=== PATIENT | female | born 1930 | race Hispanic/Latino ===

== ENCOUNTER 2018-02-20 12:46 | Inpatient (IN) | payer OTHER ==
[~2018-02-20] VITALS: Ht 149.9 cm; Wt 44.9 kg
[2018-02-20] MEDS ORDERED: LOSARTAN POTASS25 MG PO (13:30)
[2018-02-20] MEDS ORDERED: AMLODIPINE BESY10 MG PO (13:30)
[2018-02-20] MEDS ORDERED: ATORVASTATIN CA10 MG PO (13:30)
[2018-02-20] MEDS ORDERED: PANTOPRAZOLE SO40 MG PO (13:30)
[2018-02-20] MEDS ORDERED: ELIQUIS PO (13:30)
[2018-02-20] MEDS ORDERED: HYDRALAZINE HCL10 MG PO (13:30)
[2018-02-20] MEDS ORDERED: METOPROLOL SUCC25 MG PO (13:30)
[2018-02-20 14:16] LABS: BILIRUBIN,URINE NEGATIVE (NEGATIVE); CLARITY,URINE CLEAR (CLEAR); COLOR,URINE YELLOW (YELLOW); KETONES,URINE NEGATIVE (NEGATIVE); LEUKOCYTE ESTERASE ,URINE NEGATIVE (NEGATIVE); NITRITE,URINE NEGATIVE (NEGATIVE); PROTEIN,URINE DIPSTICK NEGATIVE (NEGATIVE); URINE UROBILINOGEN 0.2 mg/dL (0.2 - 1)
[2018-02-20] MEDS ORDERED: ASPIRIN 325 MG TAB PO STA (14:18)
[2018-02-20 14:28] LABS: BACTERIA,URINE MODERATE /HPF; EPITHELIAL CELLS,URINE FEW /LPF; RBC,URINE 0-5 /HPF (0-5); RENAL EPITHELIAL CELLS,URINE RARE
[2018-02-20] MEDS ORDERED: HEPARIN 25,000U/0.45% NS 250ML 800 UNIT in SODIUM CHLORIDE 0.9% 250ML 0 ML IV SCH (15:00)
[2018-02-20] MEDS ORDERED: HEPARIN SOD (PORCINE) 5,000 UNIT/ML VIAL IV ONE (15:00)
[2018-02-20 15:11] LABS: BASOPHILS % 0.6 % (0.0-1.0); EOSINOPHILS % 0.1 % (0.0-6.0); HEMATOCRIT 29.1 % (34.2-44.1); HEMOGLOBIN 9.4 g/dL (12.0-16.0); LYMPHOCYTES # (AUTO) 1.7 (1.0-3.2); MEAN CORPUSCULAR HEMOGLOBIN 22.3 pg (28-32); MEAN CORPUSCULAR HGB CONC 32.3 g/dL (31-35); MONOCYTES # (AUTO) 0.6 (0.2-0.8); MONOCYTES % 9.4 % (4.4-11.3); NEUTROPHILS # (AUTO) 4.4 (2.1-6.9); NEUTROPHILS % 64.5 % (38.7-80.0); PLATELET COUNT 203 x10e3/uL (140-360); RED BLOOD COUNT 4.22 x10e6/uL (3.6-5.1); RED CELL DISTRIBUTION WIDTH 15.9 % (11.7-14.4)
--- NOTE | 2018-02-20 15:13 | Diagnostic Imaging Report ---
PROCEDURE: A single AP view of the chest. COMPARISON: None. INDICATIONS: LEG CRAMPS, PAIN FINDINGS: Lines/tubes: Overlying right atrium and right ventricle. Lungs: Limited by slight rotation. The lungs are well inflated. Pulmonary vascular congestion and possible mild interstitial edema. Pleura: There is no visible pneumothorax. Possible trace left pleural effusion. Heart and mediastinum: Enlarged cardiac silhouette. Aorta is calcified and mildly tortuous. Bones: No acute bony abnormality. Right humeral head anchor screws. IMPRESSION: Enlarged cardiac silhouette, pulmonary vascular congestion, and possible mild interstitial edema. Suspected trace left pleural effusion versus scarring/atelectasis. Dictated by: Fam Winchester M.D. on 02/20/2018 at 15:17 Electronically approved by: Fam Wicnhester M.D. on 02/20/2018 at 15:17
[2018-02-20 15:22] LABS: INR 1.31; PROTHROMBIN TIME 15.3 seconds (11.9-14.5)
[2018-02-20 15:23] LABS: PARTIAL THROMBOPLASTIN TIME 48.7 seconds (23.8-35.5)
[2018-02-20 15:29] LABS: ALBUMIN 4.3 g/dL (3.5-5.0); ALBUMIN/GLOBULIN RATIO 1.1 (0.8-2.0); ANION GAP 17.2 mmol/L (8-16); CALCIUM 10.5 mg/dL (8.4-10.2); CREATININE, SERUM 1.43 mg/dL (0.57-1.11); POTASSIUM 3.2 mmol/L (3.5-5.1)
[2018-02-20] MEDS ORDERED: SODIUM CHLORIDE 0.9% 250ML 250 ML ONE (15:50)
[2018-02-20] MEDS ORDERED: ASPIRIN 325 MG TAB PO ONE (18:15)
[2018-02-20] MEDS ORDERED: ONDANSETRON HCL INJ 2 MG/ML VIAL IV PRN (18:15)
[2018-02-20] MEDS ORDERED: MORPHINE SULFATE 2 MG/ML SYR IV PRN (18:15)
[2018-02-20 20:00] VITALS: BP 129/60
[2018-02-20 20:51] VITALS: BP 129/60
[2018-02-20] MEDS: ATORVASTATIN 10 MG TAB PO SCH (21:00)
--- NOTE | 2018-02-20 21:45 | Consultation ---
DATE OF CONSULTATION: February 20, 2018 CARDIOLOGY CONSULTATION CHIEF COMPLAINT: Worsening left leg discomfort. HISTORY OF PRESENT ILLNESS: Ms. Govea is a pleasant 86-year-old woman with a history of hypertension; COPD; AV block Mobitz type 2, status post permanent pacemaker placement, Karla XT DR MRI [id number] [employer] device placed by Dr. Prieto; history of atrial tachycardia and atrial fibrillation and sinus node dysfunction, who presents to [facility] for complaints of worsening leg discomfort with now pain at rest with, per family, concerns of progression of arterial disease. She has been recently evaluated at other institution and brings some reports including an arterial Doppler ultrasound, date of service February 08, 2018, which is significant for severely abnormal ABIs to the left lower extremity and moderately abnormal ABIs to right lower extremity also with Doppler ultrasound findings concerning for multilevel peripheral arterial disease. Mainly monophasic waveforms noted to the right femoral to posterior tibial artery and elevated velocities in the mid segment of the femoral artery and distal segment of the popliteal artery to the right with absent Doppler signals in the posterior tibial arteries suggestive of occlusion. To the left lower extremity, monophasic waveform was noted from the common femoral artery down to the anterior tibial artery with elevated velocities in the common femoral, profunda and superficial femoral arteries and retrograde flow in the mid segment of the femoral artery and popliteal artery on the left with absent flow color signal in the distal segmental femoral artery and the posterior tibial artery suggestive of occlusion. Other abnormal findings include creatinine of 1.8 with an estimated GFR of 28 based on outpatient studies from February 10, 2018. Hemoglobin of 10, white blood cell count of 7.9 and platelets of 206,000. Her EKG shows paced rhythm. Her recent pacemaker interrogation revealed appropriate device function and was done on December 01, 2017. She is in chronic atrial fibrillation 100% of the time. She has been adhering to Eliquis therapy as an outpatient. She also notes dyspnea on exertion. REVIEW OF SYSTEMS: A 12-system review negative except for as noted above. ALLERGIES: TO SULFA. PAST MEDICAL HISTORY: As per HPI. SOCIAL HISTORY: Former smoking. No alcohol or drugs. FAMILY HISTORY: Good family support. Significant for high blood pressure. PHYSICAL EXAMINATION VITALS: Temperature 98.1, heart rate 59, respiratory rate 20, blood pressure 114/44, and O2 sat 92% on nasal cannula. GENERAL: No acute distress. Alert. NECK: No JVD. Left carotid bruit. CHEST: Clear to auscultation. CARDIOVASCULAR: Regular rate and rhythm. Normal S1 and S2. Systolic ejection murmur /6. No S3, no S4. ABDOMEN: Soft. EXTREMITIES: No edema. No evidence of ulceration or gangrenous changes. Has had normal pulses to bilateral lower extremities. MEDICATIONS: Has been initiated on IV heparin. Eliquis on hold. Aspirin 325 mg given times 1. Home medications will be reconciled including statin and blood pressure medications. LABS: White blood cells 6.8, hemoglobin 9.4, platelets 203,000, INR 1.3, PT 15, PTT 48. Sodium 133, potassium 3.2, chloride 95, bicarbonate 24, BUN 23, creatinine 1.45 with an estimated GFR of 35. Calcium 10.5, AST 23, ALT 13, total bilirubin 1, alk phos 75, total protein 8.1, albumin 4.3. Chest x-ray: Enlarged cardiac silhouette, pulmonary vascular congestion, possible mild interstitial edema, suspected trace left pleural effusion. ASSESSMENT: An 88-year-old woman presenting with 1. Severe left limiting claudication with symptoms occurring at rest to left lower extremity with no ulcer or gangrene at this point. 2. Chronic kidney disease stage 3. 3. Left carotid bruit. 4. Dyspnea on exertion and cardiomegaly on x-ray concerning for heart failure. 5. Hypertension. 6. Chronic atrial fibrillation. 7. Sick sinus syndrome, status post Medtronic pacemaker placement. RECOMMENDATIONS: 1. Hold Eliquis. 2. Add aspirin and statin. 3. Resume beta pia and other home cardiovascular medications other than Eliquis. 4. Obtain echocardiogram. 5. Obtain carotid ultrasound. 6. Depending on echocardiogram results, consider candidacy for cilostazol therapy. I have extensively discussed with the patient alternatives for management. I am particularly concerned about her elevated risk for bleeding and elevated risk for contrast induced nephropathy and adverse events related to interventional strategy in an 88-year-old woman. Understanding, however, her symptoms are severely life-limiting at this point, depending on conservative therapy response, might need to consider weighing risks and benefits of invasive approach. Spent over 30 minutes discussing with the patient as well as multiple family members who are now aware of current findings and plan of care. Will follow tomorrow and final recommendations. Job#: [id number] GE
[2018-02-21] VITALS (7 sets, daily range): BP systolic 100–127; BP diastolic 49–60
[2018-02-21 07:00] LABS: BASOPHILS % 0.7 % (0.0-1.0); HEMATOCRIT 24.3 % (34.2-44.1); LYMPHOCYTES # (AUTO) 1.5 (1.0-3.2); LYMPHOCYTES % 25.1 % (18.0-39.1); MEAN CORPUSCULAR HEMOGLOBIN 22.1 pg (28-32); MEAN CORPUSCULAR HGB CONC 32.9 g/dL (31-35); MEAN CORPUSCULAR VOLUME 67.1 fL (81-99); MONOCYTES # (AUTO) 0.6 (0.2-0.8); MONOCYTES % 10.6 % (4.4-11.3); NEUTROPHILS # (AUTO) 3.7 (2.1-6.9); NEUTROPHILS % 63.1 % (38.7-80.0); PLATELET COUNT 192 x10e3/uL (140-360); RED BLOOD COUNT 3.62 x10e6/uL (3.6-5.1); RED CELL DISTRIBUTION WIDTH 15.6 % (11.7-14.4)
[2018-02-21 07:33] LABS: ANION GAP 12.1 mmol/L (8-16); CALCIUM 9.5 mg/dL (8.4-10.2); CREATININE, SERUM 1.69 mg/dL (0.57-1.11); POTASSIUM 3.1 mmol/L (3.5-5.1)
[2018-02-21 07:48] LABS: CHOL/HDL RATIO 2.3 (3.0-3.6)
[2018-02-21] MEDS: ASPIRIN 81 MG CHEW TAB PO SCH (08:40)
[2018-02-21] MEDS: HYDRALAZINE HCL 25 MG TAB PO SCH ×3 (08:40→16:45)
[2018-02-21] MEDS: METOPROLOL SUCCINATE 25 MG TAB XL PO SCH (08:45)
[2018-02-21] MEDS: PANTOPRAZOLE SOD 40 MG TABEC PO SCH (08:45)
[2018-02-21] MEDS ORDERED: AMLODIPINE BESYLATE 10 MG TAB PO SCH (09:00)
[2018-02-21 09:32] LABS: THYROID STIMULATING HORMONE 1.303 uIU/mL (0.350-4.940)
[2018-02-21] MEDS ORDERED: POTASSIUM CHLORIDE 20 MEQ TAB CR PO NR (11:30)
--- NOTE | 2018-02-21 19:37 | Progress Note ---
DATE: February 21, 2018 CARDIOLOGY PROGRESS NOTE SUBJECTIVE: No new complaints. Denies chest pain or shortness of breath. Left lower extremity discomfort to ambulation. Discussed again extensively patient preference with extensive family discussion. OBJECTIVE VITAL SIGNS: Temperature 97.5, heart rate 82, respiratory rate 20, blood pressure 120/59. O2 sat 96% room air. GENERAL: No acute distress. Alert. NECK: No JVD. CHEST: Clear to auscultation. CARDIOVASCULAR: Regular rate and rhythm, no S1 and S2, no S3, no S4. Has a systolic ejection murmur 08/27. ABDOMEN: Soft. EXTREMITIES: No edema. Abnormal pulses. No gangrene or ulcers. CARDIOVASCULAR MEDICATIONS: Hydralazine 100 mg t.i.d. Metoprolol succinate 25 mg daily. Aspirin 81 mg daily. Atorvastatin 10 mg nightly. Amlodipine 10 mg daily. Eliquis 2.5 mg twice daily. LABORATORY STUDIES: White blood cells 5.8, hemoglobin 8, down from 9.4, platelets 192. Heparin discontinued. Sodium 135, potassium 3.1, chloride 99. Bicarbonate 27, BUN 31, creatinine 1.69 up from 1.43 yesterday. Hemoglobin A1c. is 5.3, glucose 103, triglycerides 86, total cholesterol 97. LDL 37, HDL 43, TSH 1.3. Carotid Doppler reviewed significant for right moderate to severe internal carotid stenosis and bilateral external carotid arteries with elevated velocity and waveform suggestive of stenotic disease to the left subclavian artery. Echocardiogram with preserved left ventricular systolic function, mild insufficiency of aortic and mitral valve with mild to moderate tricuspid regurgitation. ASSESSMENT: 1. Peripheral arterial disease with left limiting severe claudication. 2. Chronic kidney disease. 3. Anemia. 4. Carotid disease with right internal carotid artery moderate to severe stenosis. 5. Left subclavian artery stenosis by Doppler. 6. Hypertension. 7. Dyslipidemia. 8. Multilevel severe peripheral arterial disease as described on initial consultation note based on outpatient Dopplers. PLAN: Discussed with patient extensively, with a patient and family at this point declining angiography and possible intervention given concerns about the risks and benefit ratio at this point. They would like to initiate with cilostazol trial and outpatient exercise trial and depending on response reconsider angiography intervention at later date if needed. Resume Eliquis and discontinue heparin. Defer decision for anemia workup to primary service. Continue rest of cardiovascular medications. Job#: [id number] GH
[2018-02-21] MEDS: ATORVASTATIN 10 MG TAB PO SCH (21:47)
[2018-02-21] MEDS: APIXAB 2.5 MG TABLET PO SCH (21:47)
[2018-02-22] VITALS: BP 123/58
[2018-02-22 00:51] VITALS: BP 126/58
[2018-02-22 06:04] VITALS: BP 124/58
[2018-02-22 06:52] LABS: BASOPHILS % 0.5 % (0.0-1.0); HEMOGLOBIN 8.9 g/dL (12.0-16.0); LYMPHOCYTES # (AUTO) 1.4 (1.0-3.2); LYMPHOCYTES % 20.9 % (18.0-39.1); MEAN CORPUSCULAR HEMOGLOBIN 21.8 pg (28-32); MEAN CORPUSCULAR HGB CONC 31.8 g/dL (31-35); MEAN CORPUSCULAR VOLUME 68.5 fL (81-99); MONOCYTES # (AUTO) 0.7 (0.2-0.8); MONOCYTES % 10.2 % (4.4-11.3); NEUTROPHILS # (AUTO) 4.4 (2.1-6.9); NEUTROPHILS % 67.9 % (38.7-80.0); PLATELET COUNT 192 x10e3/uL (140-360); RED BLOOD COUNT 4.09 x10e6/uL (3.6-5.1); RED CELL DISTRIBUTION WIDTH 15.8 % (11.7-14.4)
[2018-02-22 07:36] VITALS: BP 139/61
[2018-02-22] MEDS ORDERED: APIXAB 2.5 MG TABLET PO SCH (09:00)
[2018-02-22] MEDS: APIXAB 2.5 MG TABLET PO SCH (09:06)
[2018-02-22] MEDS: HYDRALAZINE HCL 25 MG TAB PO SCH ×2 (09:06→13:17)
[2018-02-22] MEDS: PANTOPRAZOLE SOD 40 MG TABEC PO SCH (09:06)
[2018-02-22] MEDS: ASPIRIN 81 MG CHEW TAB PO SCH (09:06)
[2018-02-22] MEDS: METOPROLOL SUCCINATE 25 MG TAB XL PO SCH (09:06)
[2018-02-22 10:00] VITALS: BP 139/61
[2018-02-22] MEDS ORDERED: POTASSIUM CHLORIDE 10 MEQ TABCR PO ONE (10:30)
--- NOTE | 2018-02-22 11:08 | History and Physical ---
[facility] NURSE: Dr. Ruslan Carballo PCP: Dr. Seth Alicea CHIEF COMPLAINT: Peripheral vascular disease with left lower extremity pain. HISTORY: Patient is a pleasant but more agitated 88-year-old female with peripheral vascular disease. The patient has chronic kidney disease as well. She was placed in the hospital for observation due to left lower extremity discomfort. Dr. Grossman saw the patient in the past. The patient does have peripheral vascular disease, but she does have chronic kidney disease. Creatinine between 1.8 and 2.2 with GFR of less than 28%. Patient is on multiple medications. She was previously on Eliquis and aspirin. She has peripheral vascular disease worse on the left lower extremity compared to the right. She also has chronic atrial fibrillation and hypertension. The patient is otherwise stable. PAST MEDICAL HISTORY: Peripheral vascular disease, worse on the left compared to the right lower extremity, chronic kidney disease, stage 3 to 4, left carotid disease, hypertension, chronic atrial fibrillation, history of sick sinus syndrome, status post Medtronic permanent pacemaker placement, cardiomegaly. PAST SURGICAL HISTORY: Permanent pacemaker. SOCIAL HISTORY: Patient does not smoke or use alcohol. No recreational drug use. She lives at home with her family. ALLERGIES: SULFA. HOME MEDICATIONS: She is on Norvasc, Lipitor, hydralazine, losartan, metoprolol, Protonix, and Eliquis. PHYSICAL EXAMINATION VITAL SIGNS: Temperature is 98, blood pressure 123/58, pulse rate 60, respirations 18. GENERAL: The patient is not in acute distress. She is a little agitated and wants to go home, but otherwise no respiratory problem. HEENT: Normocephalic, atraumatic and anicteric. NECK: Supple grossly. PULMONARY: Diminished breath sounds. CARDIOVASCULAR: Regular rate and rhythm. ABDOMEN: Soft. EXTREMITIES: There is no cyanosis. There is no sign of infection. NEUROLOGIC: No focal deficit. Moving all extremities. LABORATORY: Sodium is 135, potassium 3.1, chloride 99, bicarb 27, BUN is 31, creatinine 1.7, glucose 103. WBC 6.5, hemoglobin 8.9, hematocrit 28, and platelets are 192,000. IMPRESSION 1. Peripheral vascular disease with claudication. 2. Chronic kidney disease, stage 3. 3. Anemia, most likely from a chronic kidney disease. No history of melena. No history of bleed. 4. Multiple chronic baseline problems. 5. Hypertension. 6. Atrial fibrillation. PLAN: Continue home medications. Potassium replacement. Trial of cilostazol 100 mg tablet [address] Carballo's recommendations. Continue home medications. Repeat lab work. For her anemia, I suggest the patient to follow up with Dr. Seth Alicea for serial CBC. I doubt that this is an active bleed given that the hemoglobin and hematocrit are stable. There is no history of melena. She does have chronic kidney disease as mentioned. Also, the patient does have chronic kidney disease and chronic medical problems, and an age of [address] Carballo's consultation note and recommendations. Job#: [id number] JUAN C
--- NOTE | 2018-02-22 11:28 | Discharge Summary ---
Please review my history and physical. Patient will go home today. She will go home to follow up with Dr. Carballo. I also advised patient to follow up with Dr. Seth Alicea for serial CBCs. Doubt this is an acute bleed. She will go home and resume home medications. Prescription for cilostazol 100-mg tablet 1 twice a day. Patient is stable and discharged home today. Job#: [id number]
[2018-02-22 11:56] VITALS: BP 144/59
[2018-02-22] MEDS ORDERED: CILOSTAZOL100 MG PO (13:55)
[2018-02-22] MEDS ORDERED: AMLODIPINE BESYLATE 10 MG TAB PO SCH (21:00)
--- NOTE | 2018-02-23 16:05 | Diagnostic Imaging Report ---
PROCEDURE:US GUIDANCE FOR VASCULAR ACCESS COMPARISON:None. INDICATIONS:Not provided. FINDINGS:Ultrasound evaluation of potential access sites was performed. After successfully identifying a patent vessel, US guidance was used to puncture the vein. A permanent recording was created for the patient record. CONCLUSION:Successful IV access by Ultrasound guidance. Wilfred Thompson M.D. Dictated by: Wilfred Thompson M.D. on 02/23/2018 at 16:09 Electronically approved by: Wilfred Thompson M.D. on 02/23/2018 at 16:09
== END 2018-02-22 14:14 | disposition home or self-care (01) | DRG 301 ==
LOC: ER 12:46 → ERHOLD 18:25 → MED/SURG3 18:40
PROVIDERS: ADMIT Internal Medicine; ATTEND Internal Medicine
DX: I73.9 Peripheral vascular disease, unspecified (principal); I12.9 Hypertensive chronic kidney disease with stage 1 through stage 4 chronic kidney disease, or unspecified chronic kidney disease; N18.3 Chronic kidney disease, stage 3 (moderate); I48.2 Chronic atrial fibrillation; Z79.01 Long term (current) use of anticoagulants; Z95.0 Presence of cardiac pacemaker; D63.1 Anemia in chronic kidney disease; I65.21 Occlusion and stenosis of right carotid artery; E78.5 Hyperlipidemia, unspecified; Z88.2 Allergy status to sulfonamides; R09.89 Other specified symptoms and signs involving the circulatory and respiratory systems; I49.5 Sick sinus syndrome; Z87.891 Personal history of nicotine dependence
CPT/HCPCS: 36415; 71045; 76937; 80048; 80053; 80061; 81001; 82270; 83036; 84443; 85025; 85610; 85730; 93005; 93306; 93880; 97139; 99284; J1644; J7050